=== PATIENT | male | born 1945 | race Caucasian/White ===

== ENCOUNTER 2025-03-19 16:39 | Emergency (ER) | payer MEDICARE ==
[~2025-03-19] VITALS: Ht 180.3 cm; Wt 68.0 kg
[2025-03-19 16:43] VITALS: BP 119/66
[2025-03-19] MEDS ORDERED: NEOMY/BACITRA/POLYMYXIN B OINT UD PACKET TP ONE (17:12)
[2025-03-19] MEDS: NEOMY/BACITRA/POLYMYXIN B OINT UD PACKET TP ONE (17:15)
[2025-03-19] MEDS ORDERED: CEPH500C2 PO (17:19)
[2025-03-19 17:38] VITALS: BP 119/66; O2SAT 97
== END 2025-03-19 17:38 | disposition home or self-care (01) ==
LOC: ER 16:45
DX: S61.011A Laceration without foreign body of right thumb without damage to nail, initial encounter (principal); E11.9 Type 2 diabetes mellitus without complications; Z90.49 Acquired absence of other specified parts of digestive tract; Z60.2 Problems related to living alone; X58.XXXA Exposure to other specified factors, initial encounter; Y93.9 Activity, unspecified; Y92.89 Other specified places as the place of occurrence of the external cause; Y99.8 Other external cause status
CPT/HCPCS: A4606; A4663

== ENCOUNTER 2025-03-25 06:36 | Emergency (ER) | payer MEDICARE ==
[~2025-03-25] VITALS: Ht 180.3 cm; Wt 68.0 kg
[~2025-03-25 06:36] MED LIST: CEPH500C2 PO
[2025-03-25 06:39] VITALS: BP 155/78
[2025-03-25 07:29] VITALS: BP 155/78; TEMP 97.8; O2SAT 97
== END 2025-03-25 07:29 | disposition home or self-care (01) ==
LOC: ER 06:47
DX: S61.011D Laceration without foreign body of right thumb without damage to nail, subsequent encounter (principal); E11.9 Type 2 diabetes mellitus without complications; Z48.02 Encounter for removal of sutures; Z88.7 Allergy status to serum and vaccine; Z90.49 Acquired absence of other specified parts of digestive tract; X58.XXXD Exposure to other specified factors, subsequent encounter
CPT/HCPCS: A4606; A4663

== ENCOUNTER 2025-05-02 15:01 | Emergency (ER) | payer MEDICARE ==
[~2025-05-02] VITALS: Ht 180.3 cm; Wt 68.0 kg
[2025-05-02 15:03] VITALS: BP 147/65; O2SAT 95
[2025-05-02] MEDS ORDERED: LIDOCAINE HCL 1% 20 ML VIAL ONE (15:24)
[2025-05-02] MEDS ORDERED: NEOMY/BACITRA/POLYMYXIN B OINT UD PACKET TP ONE (15:48)
[2025-05-02] MEDS: NEOMY/BACITRA/POLYMYXIN B OINT UD PACKET TP ONE ×2 (15:51→15:57)
[2025-05-02] MEDS ORDERED: ACET15SO5 LEFT EAR (16:01)
== END 2025-05-02 16:07 | disposition home or self-care (01) ==
LOC: ER 15:01
DX: S01.312A Laceration without foreign body of left ear, initial encounter (principal); E11.9 Type 2 diabetes mellitus without complications; Z85.528 Personal history of other malignant neoplasm of kidney; Z88.7 Allergy status to serum and vaccine; W26.9XXA Contact with unspecified sharp object(s), initial encounter; Y93.89 Activity, other specified; Y92.89 Other specified places as the place of occurrence of the external cause; Y99.9 Unspecified external cause status
CPT/HCPCS: A4606; A4663; J3490

== ENCOUNTER 2025-05-09 10:41 | Emergency (ER) | payer MEDICARE ==
[~2025-05-09] VITALS: Ht 180.3 cm; Wt 63.5 kg
[~2025-05-09 10:41] MED LIST changes: +ACET15SO5 LEFT EAR
[2025-05-09 10:47] VITALS: BP 113/65
[2025-05-09 11:16] VITALS: BP 113/65; O2SAT 99
== END 2025-05-09 11:16 | disposition home or self-care (01) ==
LOC: ER 10:41
DX: H61.22 Impacted cerumen, left ear (principal); S01.312D Laceration without foreign body of left ear, subsequent encounter; E11.9 Type 2 diabetes mellitus without complications; Z48.02 Encounter for removal of sutures; Z85.528 Personal history of other malignant neoplasm of kidney; Z88.7 Allergy status to serum and vaccine; X58.XXXD Exposure to other specified factors, subsequent encounter
CPT/HCPCS: A4606; A4663